=== PATIENT | female | born 1945 | race Asian ===

== ENCOUNTER 2018-09-05 22:57 | Inpatient (IN) | payer MEDICARE, MEDICAID ==
[~2018-09-05] VITALS: Ht 157.5 cm; Wt 63.5 kg
[2018-09-05] MEDS ORDERED: PANTOPRAZOLE 80 MG in SODIUM CHLORIDE 0.9% 50 ML IVPB ONE (23:04)
[2018-09-05] MEDS ORDERED: PANTOPRAZOLE 80 MG in SODIUM CHLORIDE 0.9% 100 ML IV SCH (23:04)
[2018-09-05] MEDS ORDERED: ONDANSETRON 2MG/ML, 2ML ONE (23:09)
--- NOTE | 2018-09-05 23:23 | NUR ---
LATE ENTRY: PT BIB EMS W/ CO BLOODY EMESIS X "A FEW HOURS" WITH INCREASING LETHARGY. PT HYPOTENSIVE ENROUTE, 84/50. GIVEN 300ML NS VICE PRESIDENT BIOSTATISTICS. PT ARRIVES AWAKE/ALERT, PALE/COOL. PIV X TWO ESTABLISHED. LABS/TYPE AND SCREEN DRAWN. IVF HUNG. PT MEDICATED PER VERBAL ORDER FOR NAUSEA. 2 UNITS RBC HUNG PER MASS TRANSFUSION PROTOCOL PER ERP MENDY. IMPROVEMENT IN BP & SKIN COLOR NOTED WITH INTERVENTIONS. NO S/S OF TRANSFUSION RXN NOTED. BP/SPO2/ECG MONITORING IN PLACE. NSR ON MONITOR. PT REMAINS AWAKE/ALERT, W/ EVEN/REGULAR RESPIRATIONS.
[2018-09-05] MEDS ORDERED: SODIUM CHLORIDE 0.9% 1,000ML IVBOLUS ONE (23:30)
[2018-09-05] MEDS ORDERED: CALC-666 PO (23:32)
[2018-09-05] MEDS ORDERED: ASPI-515 PO (23:32)
[2018-09-05] MEDS ORDERED: OXYB5TAB7 PO (23:32)
[2018-09-05] MEDS ORDERED: LOSA100T14 PO (23:32)
[2018-09-05] MEDS ORDERED: AMLO10TA8 PO (23:33)
[2018-09-05 23:41] LABS: MEAN CORPUSCULAR HEMOGLOBIN 30.8 pg (27.0-34.8); MEAN CORPUSCULAR HGB CONC 32.7 g/dL (32.4-35.8); MEAN CORPUSCULAR VOLUME 94.1 fL (80-100); MEAN PLATELET VOLUME 6.3 fL (7.4-10.4); PLATELET COUNT 361 x10^3/uL (130-400); RED BLOOD COUNT 1.51 x10^6/uL (3.82-5.3); RED CELL DISTRIBUTION WIDTH 15.3 % (9.6-15.2)
[2018-09-05 23:45] LABS: INTERNATIONAL NORMALIZED RATIO 0.99 (0.93-1.1); PROTHROMBIN TIME 10.4 Seconds (9.6-11.5)
[2018-09-05 23:48] LABS: ALANINE AMINOTRANSFERASE 9 U/L (12-78); ANION GAP 13 mmol/L (5-15); CALCIUM 7.5 mg/dL (8.5-10.1); CHLORIDE 116 mmol/L (98-107); CREATININE 2.15 mg/dL (0.55-1.02)
[2018-09-05 23:50] LABS: ALKALINE PHOSPHATASE 40 U/L (45-117); BILIRUBIN,TOTAL 0.2 mg/dL (0.2-1.0)
[2018-09-05 23:54] LABS: BASOPHILS # (AUTO) 0.02 x10^3/uL (0-0.1); BASOPHILS % (AUTO) 0 % (0-1); EOSINOPHILS # (AUTO) 0.03 x10^3/uL (0-0.4); EOSINOPHILS % (AUTO) 0 % (1-7); LYMPHOCYTES # (AUTO) 1.02 x10^3/uL (1-3.4); LYMPHOCYTES % (AUTO) 13 % (22-44); MONOCYTES # (AUTO) 0.24 x10^3/uL (0.2-0.8); MONOCYTES % (AUTO) 3 % (2-9); NEUTROPHILS # (AUTO) 6.47 x10^3/uL (1.8-6.8); NEUTROPHILS % (AUTO) 83 % (42-75)
--- NOTE | 2018-09-05 23:58 | NUR ---
DAUGHTER: FLORINDA [phone](H) AND [phone] (C)
[2018-09-06] VITALS (11 sets, daily range): BP systolic 108–135; BP diastolic 50–85
[2018-09-06] MEDS ORDERED: ONDANSETRON 2MG/ML, 2ML IVPush ONE
--- NOTE | 2018-09-06 00:01 | NUR ---
NO S/S OF TRANSFUSION RXN NOTED. SECOND UNIT PRBC COMPLETE. PT AWAKE/ALERT. NO VOMITING SINCE ARRIVAL TO ED. POC IS CT/ADMIT. DAUGHTER AND PT MADE AWARE AND DEMONSTRATE UNDERSTANDING.
[2018-09-06 00:11] LABS: MD SCAN
[2018-09-06] MEDS ORDERED: OMNIPAQUE 350 MG/ML, 100ML BOTTLE ONE (00:33)
--- NOTE | 2018-09-06 00:45 | NUR ---
RETURNED FROM CT. PT W/ DARK/TARRY BM ON LINENS. PT CLEANED/LINENS CHANGED. PT REMAINS AWAKE/ALERT. BLOOD BANK AWARE OF BLOOD ORDER STATES THAT THEY ARE PREPARING IT NOW AND WILL CONTACT RN WHEN READY. AWAITING CCU ADMIT
--- NOTE | 2018-09-06 01:02 | NUR ---
3 OF 4 UNITS PRBC STARTED. CONSENT SIGNED AND IS ON CHART. BP/SPO2/ECG MONITORING IN PLACE. PER ERP, NO FFP OR PLATELETS ORDERED. AWAITING HOSPITALIST ORDER FOR TRANSFER TO CCU
--- NOTE | 2018-09-06 01:26 | NUR ---
NO S/S OF TRANSFUSION RXN NOTED. 4 OF 4 UNITS PRBC HUNG. HOSPITALIST AT BEDSIDE.
[2018-09-06] MEDS ORDERED: SODIUM CHLORIDE 0.9% 1,000 ML IV SCH (01:45)
[2018-09-06] MEDS: PANTOPRAZOLE 80 MG in SODIUM CHLORIDE 0.9% 100 ML IV SCH ×3 (01:45→21:06)
--- NOTE | 2018-09-06 01:45 | NUR ---
UNIT 3 OF 4 COMPLETE. NO S/S OF TRANSFUSION RXN NOTED. PT AWAKE/ALERT AND TALKATIVE WITH EASE. PT CONTINUES TO DENY N/V/ABD PAIN, NO VOMITING SINCE BEFORE ARRIVAL TO ED. UNIT 4 OF 4 CONTINUES TO INFUSE
[2018-09-06] MEDS ORDERED: ONDANSETRON 2MG/ML, 2ML IV PRN (02:00)
[2018-09-06] MEDS ORDERED: ACETAMINOPHEN 325 MG TABLET PO SCH (02:00)
[2018-09-06] MEDS ORDERED: FUROSEMIDE 20 MG/2 ML IVPush ONE (02:00)
--- NOTE | 2018-09-06 02:06 | NUR ---
REPORT TO [facility] ON CCU. PT PREPARED FOR TRANSPORT
[2018-09-06 02:27] LABS: TROPONIN I 0.067 ng/mL (0.000-0.045)
[2018-09-06] MEDS: SODIUM BICARBONATE 8.4% 75 MEQ in DEXTROSE 5% 1,000 ML IV SCH ×2 (03:21→18:19)
[2018-09-06 03:41] LABS: HEMOGLOBIN A1C 5.4 % (4.2-6.3)
[2018-09-06 04:42] LABS: CHLORIDE,URINE RANDOM 125 mmol/L; POTASSIUM,URINE RANDOM 9 mmol/L; SODIUM,URINE RANDOM 115 mmol/L; UREA NITROGEN,URINE RANDOM 141 mg/dL
[2018-09-06 06:37] LABS: OSMOLALITY,URINE 308 mOsm/kg (500-850)
[2018-09-06 07:34] LABS: ALBUMIN 2.6 g/dL (3.4-5.0); ANION GAP 8 mmol/L (5-15); CALCIUM 7.6 mg/dL (8.5-10.1); CHLORIDE 115 mmol/L (98-107)
[2018-09-06 07:39] LABS: ALANINE AMINOTRANSFERASE 13 U/L (12-78); ALKALINE PHOSPHATASE 47 U/L (45-117); BILIRUBIN,TOTAL 1.2 mg/dL (0.2-1.0); CREATININE 1.69 mg/dL (0.55-1.02); TOTAL PROTEIN 5.8 g/dL (6.4-8.2); TROPONIN I 0.036 ng/mL (0.000-0.045)
[2018-09-06] MEDS ORDERED: ACETAMINOPHEN 325 MG TABLET PO PRN (09:00)
[2018-09-06] MEDS ORDERED: EPINEPHRINE SYRINGE 0.1 MG/ML, 10ML ONE (10:58)
[2018-09-06 13:51] LABS: TROPONIN I 0.023 ng/mL (0.000-0.045)
[2018-09-06] MEDS ORDERED: PROPOFOL 10 MG/ML, 20ML ONE (14:43)
[2018-09-06] MEDS ORDERED: PROPOFOL 10 MG/ML, 50ML ONE (14:43)
[2018-09-07 03:32] LABS: ALANINE AMINOTRANSFERASE 11 U/L (12-78); ALBUMIN 1.9 g/dL (3.4-5.0); ANION GAP 9 mmol/L (5-15); CALCIUM 7.2 mg/dL (8.5-10.1); CHLORIDE 115 mmol/L (98-107); CREATININE 1.27 mg/dL (0.55-1.02)
[2018-09-07 03:40] LABS: ANISOCYTOSIS 1+; BASOPHILS # (AUTO) 0.02 x10^3/uL (0-0.1); BASOPHILS % (AUTO) 0 % (0-1); EOSINOPHILS # (AUTO) 0.27 x10^3/uL (0-0.4); EOSINOPHILS % (AUTO) 4 % (1-7); LYMPHOCYTES # (AUTO) 2.23 x10^3/uL (1-3.4); LYMPHOCYTES % (AUTO) 32 % (22-44); MD MORPH REVIEW ONLY; MEAN CORPUSCULAR HEMOGLOBIN 31.1 pg (27.0-34.8); MEAN CORPUSCULAR HGB CONC 33.4 g/dL (32.4-35.8); MEAN CORPUSCULAR VOLUME 93.2 fL (80-100); MEAN PLATELET VOLUME 6.1 fL (7.4-10.4); MONOCYTES # (AUTO) 0.34 x10^3/uL (0.2-0.8); MONOCYTES % (AUTO) 5 % (2-9); NEUTROPHILS # (AUTO) 4.06 x10^3/uL (1.8-6.8); NEUTROPHILS % (AUTO) 59 % (42-75); OVALOCYTES 1+; PLATELET COUNT 300 x10^3/uL (130-400); POLYCHROMASIA 1+; RED BLOOD COUNT 2.86 x10^6/uL (3.82-5.3); RED CELL DISTRIBUTION WIDTH 14.3 % (9.6-15.2)
[2018-09-07 03:41] LABS: ECHINOCYTES 1+
[2018-09-07 03:42] LABS: <PLATELET ESTIMATE> ADEQUATE; <PLT MORPHOLOGY> NORMAL PLT MORPH
[2018-09-07 03:43] LABS: ALKALINE PHOSPHATASE 34 U/L (45-117); BILIRUBIN,TOTAL 0.8 mg/dL (0.2-1.0); THYROID STIMULATING HORMONE 0.982 mIU/L (0.358-3.740); TOTAL PROTEIN 4.8 g/dL (6.4-8.2)
[2018-09-07 04:00] VITALS: BP 79/53
[2018-09-07] MEDS: PANTOPRAZOLE 80 MG in SODIUM CHLORIDE 0.9% 100 ML IV SCH ×2 (07:20→16:53)
[2018-09-07] MEDS: SODIUM CHLORIDE 0.9% 1,000 ML IV SCH (08:50)
[2018-09-07] MEDS ORDERED: MAGNESIUM SULFATE PMX 4GM/100M 100 ML IVPB ONE (09:00)
[2018-09-07] MEDS ORDERED: POTASSIUM PHOSPHATE 22 MEQ in SODIUM CHLORIDE 0.9% 250 ML IV ONE (09:00)
[2018-09-07 21:31] VITALS: BP 115/54
[2018-09-07 21:49] VITALS: BP 110/48
[2018-09-07 23:25] VITALS: BP 136/57
[2018-09-07 23:28] VITALS: BP 136/57
[2018-09-07 23:42] VITALS: BP 136/46
[2018-09-08 00:51] VITALS: BP 104/52
[2018-09-08 01:15] VITALS: BP 105/50
[2018-09-08] MEDS: PANTOPRAZOLE 80 MG in SODIUM CHLORIDE 0.9% 100 ML IV SCH ×2 (03:42→15:42)
[2018-09-08 04:00] VITALS: BP 135/68
[2018-09-08 05:12] LABS: MEAN CORPUSCULAR HEMOGLOBIN 29.7 pg (27.0-34.8); MEAN CORPUSCULAR HGB CONC 32.7 g/dL (32.4-35.8); MEAN CORPUSCULAR VOLUME 90.9 fL (80-100); MEAN PLATELET VOLUME 6.1 fL (7.4-10.4); PLATELET COUNT 244 x10^3/uL (130-400); RED BLOOD COUNT 3.38 x10^6/uL (3.82-5.3); RED CELL DISTRIBUTION WIDTH 14.8 % (9.6-15.2)
[2018-09-08 05:15] LABS: ALANINE AMINOTRANSFERASE 10 U/L (12-78); ALBUMIN 2.1 g/dL (3.4-5.0); ANION GAP 6 mmol/L (5-15); CALCIUM 7.2 mg/dL (8.5-10.1); CHLORIDE 118 mmol/L (98-107)
[2018-09-08 05:18] LABS: ALKALINE PHOSPHATASE 31 U/L (45-117); BILIRUBIN,TOTAL 0.8 mg/dL (0.2-1.0); TOTAL PROTEIN 4.9 g/dL (6.4-8.2)
[2018-09-08 05:46] LABS: MD YES
[2018-09-08 05:49] LABS: ANISOCYTOSIS 1+; BAND#(MANUAL) 0.07 x10^3/uL; BANDS%(MANUAL) 1 % (0-7); ECHINOCYTES 1+; EOS% (MANUAL) 3 % (1-7); LYMPH#(MANUAL) 1.41 x10^3/uL (1-3.4); LYMPHS% (MANUAL) 21 % (22-44); MONOS#(MANUAL) 0.13 x10^3/uL (0.3-2.7); MONOS% (MANUAL) 2 % (2-9); MYELOCYTES# (MANUAL) 0.07 x10^3/uL (0-0); MYELOCYTES% (MANUAL) 1 % (0-0); SEG#(MANUAL) 4.82 x10^3/uL (1.8-6.8); SEGS% (MANUAL) 72 % (42-75)
[2018-09-08 05:50] LABS: <PLATELET ESTIMATE> ADEQUATE; <PLT MORPHOLOGY> NORMAL PLT MORPH; ACANTHOCYTES 1+; OVALOCYTES 1+; POLYCHROMASIA 1+
[2018-09-08] MEDS: SODIUM CHLORIDE 0.9% 1,000 ML IV SCH (05:56)
[2018-09-09] MEDS: SODIUM CHLORIDE 0.9% 1,000 ML IV SCH (00:51)
[2018-09-09] MEDS: PANTOPRAZOLE 80 MG in SODIUM CHLORIDE 0.9% 100 ML IV SCH ×3 (03:05→23:03)
[2018-09-09 04:00] VITALS: BP 152/74
[2018-09-09 04:37] LABS: BASOPHILS # (AUTO) 0.02 x10^3/uL (0-0.1); BASOPHILS % (AUTO) 0 % (0-1); EOSINOPHILS % (AUTO) 5 % (1-7); LYMPHOCYTES # (AUTO) 1.13 x10^3/uL (1-3.4); LYMPHOCYTES % (AUTO) 17 % (22-44); MD NO; MEAN CORPUSCULAR HEMOGLOBIN 30.3 pg (27.0-34.8); MEAN CORPUSCULAR HGB CONC 32.6 g/dL (32.4-35.8); MEAN CORPUSCULAR VOLUME 92.9 fL (80-100); MONOCYTES # (AUTO) 0.49 x10^3/uL (0.2-0.8); MONOCYTES % (AUTO) 7 % (2-9); NEUTROPHILS # (AUTO) 4.73 x10^3/uL (1.8-6.8); NEUTROPHILS % (AUTO) 71 % (42-75); PLATELET COUNT 270 x10^3/uL (130-400); RED BLOOD COUNT 3.25 x10^6/uL (3.82-5.3); RED CELL DISTRIBUTION WIDTH 14.7 % (9.6-15.2)
[2018-09-09 04:46] LABS: ALANINE AMINOTRANSFERASE 12 U/L (12-78); ANION GAP 6 mmol/L (5-15); CALCIUM 7.2 mg/dL (8.5-10.1); CHLORIDE 120 mmol/L (98-107); CREATININE 0.78 mg/dL (0.55-1.02)
[2018-09-09 04:49] LABS: ALKALINE PHOSPHATASE 31 U/L (45-117); BILIRUBIN,TOTAL 0.5 mg/dL (0.2-1.0); TOTAL PROTEIN 4.7 g/dL (6.4-8.2)
[2018-09-09] MEDS: POTASSIUM ACID PHOSPHATE 500 MG TABLET.SOL PO SCH ×2 (11:47→18:37)
[2018-09-09 19:22] VITALS: BP 147/69
[2018-09-09] MEDS: OXYBUTYNIN CHLORIDE 5 MG TABLET PO SCH (21:06)
[2018-09-10] MEDS: POTASSIUM ACID PHOSPHATE 500 MG TABLET.SOL PO SCH ×2 (00:12→05:20)
[2018-09-10 03:17] VITALS: BP 139/72
[2018-09-10 05:33] LABS: BASOPHILS # (AUTO) 0.01 x10^3/uL (0-0.1); BASOPHILS % (AUTO) 0 % (0-1); EOSINOPHILS # (AUTO) 0.28 x10^3/uL (0-0.4); EOSINOPHILS % (AUTO) 5 % (1-7); LYMPHOCYTES # (AUTO) 1.27 x10^3/uL (1-3.4); LYMPHOCYTES % (AUTO) 23 % (22-44); MD NO; MEAN CORPUSCULAR HEMOGLOBIN 30.7 pg (27.0-34.8); MEAN CORPUSCULAR VOLUME 92.8 fL (80-100); MEAN PLATELET VOLUME 6.2 fL (7.4-10.4); MONOCYTES # (AUTO) 0.42 x10^3/uL (0.2-0.8); MONOCYTES % (AUTO) 8 % (2-9); NEUTROPHILS # (AUTO) 3.59 x10^3/uL (1.8-6.8); NEUTROPHILS % (AUTO) 65 % (42-75); PLATELET COUNT 288 x10^3/uL (130-400); RED BLOOD COUNT 3.02 x10^6/uL (3.82-5.3); RED CELL DISTRIBUTION WIDTH 15.4 % (9.6-15.2)
[2018-09-10 05:45] LABS: CHLORIDE 118 mmol/L (98-107)
[2018-09-10 05:54] LABS: ALANINE AMINOTRANSFERASE 9 U/L (12-78); ALBUMIN 2.1 g/dL (3.4-5.0); ALKALINE PHOSPHATASE 35 U/L (45-117); ANION GAP 7 mmol/L (5-15); BILIRUBIN,TOTAL 0.5 mg/dL (0.2-1.0); CALCIUM 7.7 mg/dL (8.5-10.1); CREATININE 0.84 mg/dL (0.55-1.02); TOTAL PROTEIN 4.7 g/dL (6.4-8.2)
[2018-09-10 06:41] VITALS: BP 130/71
[2018-09-10] MEDS: PANTOPRAZOLE 80 MG in SODIUM CHLORIDE 0.9% 100 ML IV SCH (08:57)
[2018-09-10] MEDS: OXYBUTYNIN CHLORIDE 5 MG TABLET PO SCH ×2 (09:54→22:09)
[2018-09-10] MEDS: LOSARTAN 50MG TABLET PO SCH (09:54)
[2018-09-10 12:25] VITALS: BP 98/65
[2018-09-10] MEDS: PANTOPRAZOLE 40 MG IV IVPush SCH (16:02)
[2018-09-10 19:16] VITALS: BP 147/80
[2018-09-11 03:03] VITALS: BP 141/76
[2018-09-11] MEDS: PANTOPRAZOLE 40 MG IV IVPush SCH ×2 (03:08→15:57)
[2018-09-11 04:36] LABS: ANION GAP 8 mmol/L (5-15); CHLORIDE 118 mmol/L (98-107); CREATININE 0.95 mg/dL (0.55-1.02)
[2018-09-11 05:43] LABS: BASOPHILS # (AUTO) 0.03 x10^3/uL (0-0.1); BASOPHILS % (AUTO) 1 % (0-1); EOSINOPHILS # (AUTO) 0.25 x10^3/uL (0-0.4); EOSINOPHILS % (AUTO) 5 % (1-7); LYMPHOCYTES # (AUTO) 1.46 x10^3/uL (1-3.4); LYMPHOCYTES % (AUTO) 26 % (22-44); MD NO; MEAN CORPUSCULAR HEMOGLOBIN 30.5 pg (27.0-34.8); MEAN CORPUSCULAR HGB CONC 33.8 g/dL (32.4-35.8); MEAN CORPUSCULAR VOLUME 90.5 fL (80-100); MEAN PLATELET VOLUME 5.9 fL (7.4-10.4); MONOCYTES # (AUTO) 0.47 x10^3/uL (0.2-0.8); MONOCYTES % (AUTO) 9 % (2-9); NEUTROPHILS # (AUTO) 3.32 x10^3/uL (1.8-6.8); NEUTROPHILS % (AUTO) 60 % (42-75); PLATELET COUNT 322 x10^3/uL (130-400); RED BLOOD COUNT 3.02 x10^6/uL (3.82-5.3); RED CELL DISTRIBUTION WIDTH 15.8 % (9.6-15.2)
[2018-09-11 07:35] VITALS: BP 133/66
[2018-09-11] MEDS: LOSARTAN 50MG TABLET PO SCH (10:58)
[2018-09-11] MEDS: OXYBUTYNIN CHLORIDE 5 MG TABLET PO SCH ×2 (10:58→20:21)
[2018-09-11] MEDS: CALCIUM CARBONATE 500 MG TAB.CHEW PO SCH ×3 (12:24→20:21)
[2018-09-11 13:03] VITALS: BP 117/69
[2018-09-11 19:28] VITALS: BP 98/61
[2018-09-12 01:02] VITALS: BP 143/79
[2018-09-12 05:20] LABS: BASOPHILS # (AUTO) 0.03 x10^3/uL (0-0.1); BASOPHILS % (AUTO) 1 % (0-1); EOSINOPHILS # (AUTO) 0.26 x10^3/uL (0-0.4); EOSINOPHILS % (AUTO) 5 % (1-7); LYMPHOCYTES # (AUTO) 1.53 x10^3/uL (1-3.4); LYMPHOCYTES % (AUTO) 29 % (22-44); MD NO; MEAN CORPUSCULAR HEMOGLOBIN 30.1 pg (27.0-34.8); MEAN CORPUSCULAR HGB CONC 32.8 g/dL (32.4-35.8); MEAN CORPUSCULAR VOLUME 91.8 fL (80-100); MEAN PLATELET VOLUME 6.1 fL (7.4-10.4); MONOCYTES # (AUTO) 0.45 x10^3/uL (0.2-0.8); MONOCYTES % (AUTO) 9 % (2-9); NEUTROPHILS # (AUTO) 2.95 x10^3/uL (1.8-6.8); NEUTROPHILS % (AUTO) 57 % (42-75); PLATELET COUNT 340 x10^3/uL (130-400); RED BLOOD COUNT 2.95 x10^6/uL (3.82-5.3); RED CELL DISTRIBUTION WIDTH 15.4 % (9.6-15.2)
[2018-09-12 05:29] LABS: ANION GAP 7 mmol/L (5-15); CALCIUM 8.4 mg/dL (8.5-10.1); CHLORIDE 116 mmol/L (98-107); CREATININE 0.99 mg/dL (0.55-1.02)
[2018-09-12] MEDS: PANTOPROZOLE 40MG TABLET PO SCH ×2 (05:55→17:02)
[2018-09-12] MEDS: CALCIUM CARBONATE 500 MG TAB.CHEW PO SCH ×4 (05:55→21:32)
[2018-09-12 07:54] VITALS: BP 128/69
[2018-09-12] MEDS: LOSARTAN 50MG TABLET PO SCH (09:51)
[2018-09-12] MEDS: OXYBUTYNIN CHLORIDE 5 MG TABLET PO SCH ×2 (09:51→21:32)
[2018-09-12 14:59] VITALS: BP 137/78
[2018-09-12 20:00] VITALS: BP 110/71
[2018-09-13 01:54] VITALS: BP 138/79
[2018-09-13 05:24] LABS: BASOPHILS # (AUTO) 0.03 x10^3/uL (0-0.1); BASOPHILS % (AUTO) 1 % (0-1); EOSINOPHILS # (AUTO) 0.22 x10^3/uL (0-0.4); EOSINOPHILS % (AUTO) 4 % (1-7); LYMPHOCYTES # (AUTO) 1.53 x10^3/uL (1-3.4); LYMPHOCYTES % (AUTO) 30 % (22-44); MD NO; MEAN CORPUSCULAR HEMOGLOBIN 30.2 pg (27.0-34.8); MEAN CORPUSCULAR VOLUME 91.3 fL (80-100); MEAN PLATELET VOLUME 5.8 fL (7.4-10.4); MONOCYTES # (AUTO) 0.45 x10^3/uL (0.2-0.8); MONOCYTES % (AUTO) 9 % (2-9); NEUTROPHILS # (AUTO) 2.84 x10^3/uL (1.8-6.8); NEUTROPHILS % (AUTO) 56 % (42-75); PLATELET COUNT 382 x10^3/uL (130-400); RED BLOOD COUNT 3.01 x10^6/uL (3.82-5.3); RED CELL DISTRIBUTION WIDTH 15.5 % (9.6-15.2)
[2018-09-13 05:32] LABS: ANION GAP 8 mmol/L (5-15); CALCIUM 8.7 mg/dL (8.5-10.1); CHLORIDE 115 mmol/L (98-107); CREATININE 1.12 mg/dL (0.55-1.02)
[2018-09-13] MEDS: PANTOPROZOLE 40MG TABLET PO SCH (05:35)
[2018-09-13] MEDS: CALCIUM CARBONATE 500 MG TAB.CHEW PO SCH ×2 (05:35→11:06)
[2018-09-13 07:58] VITALS: BP 92/60
[2018-09-13] MEDS: LOSARTAN 50MG TABLET PO SCH (08:16)
[2018-09-13] MEDS: OXYBUTYNIN CHLORIDE 5 MG TABLET PO SCH (08:16)
[2018-09-13] MEDS ORDERED: PANT40TA5 PO (08:44)
[2018-09-13 13:27] VITALS: BP 99/63
== END 2018-09-13 15:36 | disposition home or self-care (01) | DRG 377 ==
LOC: ED 23:53 → EDIP 09-06 00:09 → CCU 09-06 02:23 → 3NE 09-09 13:07 → DCLOUNGE 09-13 15:22
PROVIDERS: ADMIT Internal Medicine; ATTEND Internal Medicine
PROC: 30233N1 Transfusion of Nonautologous Red Blood Cells into Peripheral Vein, Percutaneous Approach (ICD-10-PCS; 2018-09-06)
PROC: 0W3P8ZZ Control Bleeding in Gastrointestinal Tract, Via Natural or Artificial Opening Endoscopic (ICD-10-PCS; principal; 2018-09-06 10:00)
DX: K26.4 Chronic or unspecified duodenal ulcer with hemorrhage (principal); N17.0 Acute kidney failure with tubular necrosis; I21.A1 Myocardial infarction type 2; D62 Acute posthemorrhagic anemia; E87.2 Acidosis; E83.39 Other disorders of phosphorus metabolism; N32.81 Overactive bladder; Z66 Do not resuscitate; I10 Essential (primary) hypertension; K29.50 Unspecified chronic gastritis without bleeding; K44.9 Diaphragmatic hernia without obstruction or gangrene; E83.42 Hypomagnesemia; E88.09 Other disorders of plasma-protein metabolism, not elsewhere classified; I25.2 Old myocardial infarction; Z86.73 Personal history of transient ischemic attack (TIA), and cerebral infarction without residual deficits; Z79.82 Long term (current) use of aspirin; I35.8 Other nonrheumatic aortic valve disorders
CPT/HCPCS: 36415; 36430; 36600; 74018; 74177; 76770; 78278; 80048; 80053; 82436; 82803; 83036; 83605; 83690; 83735; 83935; 84100; 84133; 84300; 84443; 84484; 84540; 85014; 85018; 85025; 85610; 85730; 86704; 86706; 86708; 86803; 86850; 86900; 86923; 87081; 87338; 87340; 93005; 93306; 96365; 99291; G0378; J2405; J2704; J7070; Q9967; A4648; A9560; C9113; C9898; J1940; J3475; J7030; J7050; P9016